=== PATIENT | female | born 1930 | race Caucasian/White ===

== ENCOUNTER 2018-12-25 10:48 | Inpatient (IN) | payer OTHER ==
[2018-12-25] VITALS (7 sets, daily range): BP systolic 99–154; BP diastolic 54–92
[~2018-12-25] VITALS: Ht 157.5 cm; Wt 47.0 kg
[~2018-12-25 10:48] MED LIST: ACETAMINOPHEN325 M1 PO; BENICAR40 MG PO; COMBIGAN EYE DR10 ML OPHTHALMIC; DILTIAZEM ER240 M1 PO; HYDRALAZINE 10M10 MG PO; HYDROCODON-ACE1 EAC7 PO; LIPITOR10 MG PO; MIRALAX255 GM PO; OS-CAL 500+D C1 EACH PO; PRADAXA75 MG PO; RANITIDINE HCL300 M1 PO; REFRESH OPTIVE10 ML OPHTHALMIC; TRAVATAN Z5 ML OPHTHALMIC
[2018-12-25 11:39] LABS: HEMATOCRIT 35.2 % (37.0-47.0); HEMOGLOBIN 11.5 gm/dL (12.0-15.0); MCH 29.3 pg (26.0-34.0); MCHC 32.6 g/dL (28.0-37.0); MCV 89.7 fL (80.0-100.0); RBC 3.93 mil/uL (4.20-5.00); RDW 15.8 % (10.5-14.5)
[2018-12-25 11:52] LABS: CALCIUM 8.8 mg/dL (8.5-10.1); CREATININE 0.8 mg/dL (0.6-1.0)
[2018-12-25 11:53] LABS: POTASSIUM 2.4 mmol/L (3.5-5.1)
[2018-12-25 11:55] LABS: INR 1.2; PROTIME 12.2 Seconds (9.3-11.4)
[2018-12-25] MEDS ORDERED: ACETAMINOPHEN-1 EAC1 PO (12:20)
[2018-12-25] MEDS ORDERED: LASIX 20 MG TAB20 MG PO (12:21)
[2018-12-25] MEDS ORDERED: ERGOCALCIF50000 UNIT PO (12:21)
[2018-12-25] MEDS ORDERED: DITROPAN XL5 M1 PO (12:22)
[2018-12-25] MEDS ORDERED: TOPROL XL100 MG PO (12:22)
[2018-12-25] MEDS ORDERED: UNICOMPLEX M TA1 TA1 PO (12:23)
[2018-12-25 19:02] LABS: HEMATOCRIT 34.8 % (37.0-47.0); HEMOGLOBIN 11.3 gm/dL (12.0-15.0); MCH 29.2 pg (26.0-34.0); MCHC 32.4 g/dL (28.0-37.0); RBC 3.86 mil/uL (4.20-5.00); RDW 16.1 % (10.5-14.5); WBC 11.1 thou/uL (4.0-11.0)
[2018-12-25 19:13] LABS: CALCIUM 6.9 mg/dL (8.5-10.1); CREATININE 0.5 mg/dL (0.6-1.0); MAGNESIUM 1.7 mg/dL (1.8-2.4); POTASSIUM 3.2 mmol/L (3.5-5.1)
--- NOTE | 2018-12-25 19:39 | NUR ---
PT ARRIVED TO THE UNIT FROM INTERVENTIONAL RADIOLOGY AT APPROX 1530. PT ALERT AND ORIENTED, VSS- BP ELEVATED, PROVIDER AWARE, PT C/O PAIN IN LEFT GROIN- WILL TREAT PER MAR. LEFT GROIN SITE ASSESSED WITH IR NURSE, DRESSING CDI, NO HEMATOMA, BRUISING NOTED AROUND SITE. PT C/O INCREASED PAIN IN GROIN SITE, DR OSVALDO DORAN, IR NURSES CAME IN TO ASSESS PT GROIN SITE STATING THERE WAS SKIN BREAKDOWN AROUND SITE, BUT THAT THE PUNCTURE SITE REMAINED INTACT WITH NO BLEEDING OR HEMATOMA. CONTINOUS CHECKS ON GROIN SITE ENFORCED. POTASSIUM AND MAGNESIUM REPLACED PER ELECTROLYTE PROTOCOL. POST PROCEDURE FLOWSHEET DOCUMENTED IN CHART. PAIN MEDS GIVEN- PT DID NOT WANT FULL 2 TAB DOSE, 1 TAB GIVEN. DENIES CONCERNS, WILL CONT TO MONITOR.
[2018-12-26 03:37] LABS: HEMATOCRIT 29.6 % (37.0-47.0); HEMOGLOBIN 9.7 gm/dL (12.0-15.0); MCH 29.5 pg (26.0-34.0); MCHC 32.7 g/dL (28.0-37.0); RBC 3.29 mil/uL (4.20-5.00); RDW 15.7 % (10.5-14.5); WBC 8.1 thou/uL (4.0-11.0)
[2018-12-26 03:43] LABS: CALCIUM 7.9 mg/dL (8.5-10.1); CREATININE 0.7 mg/dL (0.6-1.0); MAGNESIUM 2.5 mg/dL (1.8-2.4); POTASSIUM 3.8 mmol/L (3.5-5.1)
[2018-12-26 05:03] VITALS: BP 122/65
--- NOTE | 2018-12-26 05:39 | NUR ---
ASSUMED PT CARE AT 1900 WITH NO SIGN OF DISTRESS NOTED IN PT. PT IS A CATH PT. PT IS LAYING FLAT FOR HEMOSTASIS. PT IS ALERT AND CONFUSED, ELECTROLYTES ARE REPLACE. RIGHT GROIN SITE BRUISED. VITAL SIGNS CHECKED. PT IS IN AFIB. SCHEDULED MEDS ADMINISTERED TO PT. NO SIGN OF DISTRESS NOTED. PT HAS BOUTS OF CONFUSION THROUGHOUT THE NIGHT. PT IS STABLE. DENIES ANY FURTHER NEEDS AT THIS TIME.
[2018-12-26 08:00] VITALS: BP 140/79
[2018-12-26 12:05] VITALS: BP 97/58
[2018-12-26] MEDS ORDERED: PLAVIX 300 MG300 M1 PO (12:06)
--- NOTE | 2018-12-26 16:28 | NUR ---
ASSUMED CARE OF PT AT SHIFT CHANGE. ASSESSMENTS CHARTED. MEDS GIVEN PER AUG. PT ALERT AND ORIENTED, FORGETFUL AT TIMES. VSS, UP X1 WITH WALKER, O2 SATS WNL ON ROOM AIR. NO C/O PAIN, DENIES CHEST PAIN, LEFT GROIN SITE REMAINS CDI, DRESSING REMOVED AND BANDAID APPLIED PER ORDERS. REPORT CALLED TO [facility] TO NURSE MIDT. PT LEFT UNIT WITH ALL BELONGINGS ACCOMPANIED BY BY SENTHIL POOL. IV REMOVED, TELE REMOVED. PT LEFT UNIT AT APPROX 1630.
== END 2018-12-26 16:30 | DRG 272 ==
LOC: SPEC 10:48 → 2N 15:33
PROVIDERS: Internal Medicine; ADMIT Nuclear Medicine Nuclear Cardiology
PROC: 04CK3ZZ Extirpation of Matter from Right Femoral Artery, Percutaneous Approach (ICD-10-PCS; principal; 2018-12-25)
PROC: 047K3Z1 Dilation of Right Femoral Artery using Drug-Coated Balloon, Percutaneous Approach (ICD-10-PCS; principal; 2018-12-25)
PROC: B4181ZZ Fluoroscopy of Bilateral Renal Arteries using Low Osmolar Contrast (ICD-10-PCS; principal; 2018-12-25)
PROC: B41D1ZZ Fluoroscopy of Aorta and Bilateral Lower Extremity Arteries using Low Osmolar Contrast (ICD-10-PCS; principal; 2018-12-25)
DX: I73.9 Peripheral vascular disease, unspecified (principal); I10 Essential (primary) hypertension; E87.6 Hypokalemia; H40.9 Unspecified glaucoma; E78.00 Pure hypercholesterolemia, unspecified; K21.9 Gastro-esophageal reflux disease without esophagitis; E83.42 Hypomagnesemia; E78.5 Hyperlipidemia, unspecified; I48.2 Chronic atrial fibrillation; Z79.899 Other long term (current) drug therapy; Z88.0 Allergy status to penicillin; Z98.42 Cataract extraction status, left eye; Z98.41 Cataract extraction status, right eye; Z87.891 Personal history of nicotine dependence
CPT/HCPCS: 10081

== ENCOUNTER 2019-01-21 16:30 | Emergency (ER) | payer OTHER ==
[~2019-01-21] VITALS: Ht 157.5 cm; Wt 51.7 kg
[~2019-01-21 16:30] MED LIST changes: +ACETAMINOPHEN-1 EAC1 PO; +DITROPAN XL5 M1 PO; +ERGOCALCIF50000 UNIT PO; +LASIX 20 MG TAB20 MG PO; +PLAVIX 300 MG300 M1 PO; +TOPROL XL100 MG PO; +UNICOMPLEX M TA1 TA1 PO
[2019-01-21] MEDS ORDERED: HYDRALAZINE 10M10 MG PO ×2 (16:38→16:39)
[2019-01-21] MEDS ORDERED: DITROPAN XL5 M1 PO (16:39)
[2019-01-21] MEDS ORDERED: DIGOXIN125 MCG PO (16:40)
[2019-01-21 17:00] LABS: ABSOLUTE NEUTROPHILS 4.6 thou/uL (1.4-8.2); BASOPHILS 0.9 % (0.0-2.0); EOSINOPHILS 2.3 % (0.0-3.0); HEMATOCRIT 30.7 % (37.0-47.0); HEMOGLOBIN 9.7 gm/dL (12.0-15.0); LYMPHOCYTES 22.8 % (24.0-44.0); MCH 29.4 pg (26.0-34.0); MCHC 31.5 g/dL (28.0-37.0); MCV 93.5 fL (80.0-100.0); MONOCYTES 7.9 % (1.0-8.0); PLATELET COUNT 283 thou/uL (150-400); POLYS 66.1 % (36.0-66.0); RBC 3.29 mil/uL (4.20-5.00)
[2019-01-21 17:04] LABS: ANION GAP 9 mmol/L (7-16); BUN 11 mg/dL (7-18); CALCIUM 7.9 mg/dL (8.5-10.1); CHLORIDE 101 mmol/L (98-107); CO2 24 mmol/L (21-32); CREATININE 0.6 mg/dL (0.6-1.0); GLUCOSE 85 mg/dL (74-106); POTASSIUM 3.5 mmol/L (3.5-5.1); SODIUM 134 mmol/L (136-145)
[2019-01-21 17:14] LABS: ALBUMIN 2.5 g/dL (3.4-5.0); SGOT 34 U/L (15-37); SGPT 10 U/L (30-65); TROPONIN-I <0.06 ng/mL (<0.06)
[2019-01-21 18:40] VITALS: BP 166/82
--- NOTE | 2019-01-22 08:35 | EKG ---
[address] [address] ELECTROCARDIOGRAM REPORT Name: AMBER GREEN [id number] ������������������ Admission: 01/21/19 ������������������ Attend Phys: Discharge: 01/21/19 ������������������ Date of : [birth year] Report #: [id number] ����������������������������������������������������������������� [id number] THIS REPORT FOR: //name// [facility] ED Test Date: 2019-01-21 Test Time: 16:34:35 Pat Name: AMBER GREEN Department: Room: Gender: F Quality Assurance Tester: : [id number] Requested By: Brennan Augustine Order Number: [id number] MD: Hesham Diallo Measurements Intervals [place] Rate: 110 P: PA: QRS: 84 QRSD: 73 T: 54 QT: 369 QTc: 500 Interpretive Statements Atrial fibrillation Borderline repolarization abnormality Borderline prolonged QT interval Compared to ECG 02/11/2013 07:14:13 No significant change was found Electronically Signed On 01-22-2019 8:35:18 CDT by Hesham Diallo [email or web address] ��������������������������������������������� <ELECTRONICALLY SIGNED> ���������������������������������������� By: Hesham Diallo MD, [facility] ��������������������������������������������� 01/22/19 0835 1634 1634 Hesham Diallo MD, FACC /EPI
== END 2019-01-21 18:40 | disposition home or self-care (01) ==
LOC: ER 16:30
PROVIDERS: Emergency Medicine
DX: I48.91 Unspecified atrial fibrillation (principal); I10 Essential (primary) hypertension; E78.00 Pure hypercholesterolemia, unspecified; K21.9 Gastro-esophageal reflux disease without esophagitis; Z90.89 Acquired absence of other organs; Z79.01 Long term (current) use of anticoagulants; Z98.41 Cataract extraction status, right eye; Z98.42 Cataract extraction status, left eye; Z98.890 Other specified postprocedural states; Z88.0 Allergy status to penicillin; Z88.2 Allergy status to sulfonamides